=== PATIENT | female | born 1960 | race Caucasian/White ===

== ENCOUNTER 2021-01-22 14:51 | Emergency (ER) | payer OTHER ==
[~2021-01-22] VITALS: Ht 165.1 cm; Wt 98.0 kg
[2021-01-22] MEDS ORDERED: ACCU-CHEK COMFORT CURVE STRIP VI ONE (15:30)
[2021-01-22 16:40] LABS: Hematocrit 34.4 % (36.0-46.0); Hemoglobin 11.5 g/dL (12.2-16.2); Mean Corpuscular Hemoglobin 26.8 pg (28.0-32.0); Mean Corpuscular Hgb Conc. 33.4 g/dL (32.0-36.0); Mean Corpuscular Volume 80.5 fL (80.0-100.0); Platelet Count (auto) 280 10^3/uL (140-450); Red Blood Cells 4.28 10^6/uL (4.0-5.20); White Blood Cell 8.9 10^3/uL (4.4-10.8)
[2021-01-22 16:44] LABS: Red Cell Distribution Width 23.6 % (11.8-14.3)
[2021-01-22 16:45] LABS: Basophils % (manual) 0 (0.0-2.0); Blast Cells 0; Eosinophils % (manual) 0 (0-7); Metamyelocytes % 0; Myelocytes % 0; Promyelocytes % 0; Reactive Lymphocytes 0
[2021-01-22 16:55] LABS: Albumin 3.5 g/dL (3.4-5.0); Calcium 8.9 mg/dL (8.5-10.1)
[2021-01-22 16:59] LABS: BUN/Creatinine Ratio 24.7; Bilirubin, Total 0.4 mg/dL (0.2-1.0); Total Protein 7.7 g/dL (6.4-8.2)
[2021-01-22 17:05] LABS: Potassium 2.8 mmol/L (3.5-5.1)
[2021-01-22 17:29] LABS: Urine WBC None Seen /hpf (0 - 5)
[2021-01-22] MEDS: POTASSIUM CHL 20MEQ/100ML 100 ML IV SCH ×2 (17:39→19:48)
[2021-01-22 18:09] LABS: Urine Bacteria NONE SEEN /hpf (None Seen); Urine Blood TRACE /uL (Negative); Urine Specific Gravity 1.014 (1.001-1.035)
[2021-01-22 18:15] LABS: Band Neutrophils % (manual) 8; Lymphocytes % (manual) 6 (10.0-50.0); Monocytes % (manual) 12 (0-12)
[2021-01-22] MEDS ORDERED: SODIUM CHLORIDE 0.9% 1,000 ML IVB ONE (18:15)
[2021-01-22] MEDS ORDERED: ONDANSETRON HCL 4 MG/2 ML VIAL ONE (19:00)
[2021-01-22] MEDS ORDERED: ONDANSETRON HCL 4 MG/2 ML VIAL IV ONE (19:15)
[2021-01-22 19:41] LABS: INR 0.98 (0.9-1.15); Partial Thromboplastin Time 22.2 sec (23.0-31.2)
[2021-01-22 19:54] LABS: Magnesium 1.9 mg/dL (1.6-2.6)
[2021-01-23 02:57] VITALS: BP 135/70
== END 2021-01-23 03:29 | disposition short-term general hospital (02) ==
LOC: EDBD 14:51 → ER 14:51
DX: R55 Syncope and collapse (principal); E87.6 Hypokalemia; D00.08 Carcinoma in situ of pharynx; N19 Unspecified kidney failure; I10 Essential (primary) hypertension; K21.9 Gastro-esophageal reflux disease without esophagitis; E78.5 Hyperlipidemia, unspecified; Z20.822 Contact with and (suspected) exposure to COVID-19
CPT/HCPCS: 36415; 70450; 71045; 80053; 81001; 83735; 84484; 85007; 85027; 85610; 85730; 87426; 93005; 96361; 96365; 96366; 96375; 99285; J2405; J3480

== ENCOUNTER 2021-02-02 07:47 | Emergency (ER) | payer OTHER ==
[~2021-02-02] VITALS: Ht 162.6 cm; Wt 125.6 kg
[2021-02-02] MEDS ORDERED: GASTROGRAFIN 30 ML SOL ONE ×2 (08:40→08:41)
[2021-02-02 09:53] VITALS: BP 118/57
== END 2021-02-02 09:53 | disposition home or self-care (01) ==
LOC: ER 07:47
DX: Z43.1 Encounter for attention to gastrostomy (principal); I10 Essential (primary) hypertension; K21.9 Gastro-esophageal reflux disease without esophagitis; E78.5 Hyperlipidemia, unspecified; Z88.5 Allergy status to narcotic agent
CPT/HCPCS: 43762; 74018; 99284; Q9963

== ENCOUNTER 2021-03-10 19:01 | Inpatient (IN) | payer OTHER ==
[~2021-03-10] VITALS: Ht 162.6 cm; Wt 131.7 kg
[2021-03-10] MEDS ORDERED: PANTOPRAZOLE 40 MG/10 ML VIAL INJ IV ONE (19:15)
[2021-03-10 20:18] LABS: Hematocrit 34.9 % (36.0-46.0); Hemoglobin 11.7 g/dL (12.2-16.2); Mean Corpuscular Hemoglobin 29.5 pg (28.0-32.0); Mean Corpuscular Hgb Conc. 33.4 g/dL (32.0-36.0); Mean Corpuscular Volume 88.5 fL (80.0-100.0); Red Blood Cells 3.95 10^6/uL (4.0-5.20); White Blood Cell 9.3 10^3/uL (4.4-10.8)
[2021-03-10 20:23] LABS: Red Cell Distribution Width 22.7 % (11.8-14.3)
[2021-03-10 20:25] LABS: Basophils % (manual) 0 (0.0-2.0); Blast Cells 0; Eosinophils % (manual) 0 (0-7); Metamyelocytes % 0; Myelocytes % 0; Promyelocytes % 0; Reactive Lymphocytes 0
[2021-03-10 20:33] LABS: Albumin 3.3 g/dL (3.4-5.0); Anion Gap 8 (5-15); Blood Urea Nitrogen 24 mg/dL (7-18); Calcium 8.4 mg/dL (8.5-10.1); Carbon Dioxide 19 mmol/L (21-32); Chloride 107 mmol/L (98-107); Glucose 147 mg/dL (74-106); Magnesium 2.1 mg/dL (1.6-2.6); Potassium 4.2 mmol/L (3.5-5.1); Sodium 134 mmol/L (136-145)
[2021-03-10 20:39] LABS: Alanine Aminotransferase 23 U/L (13-56); Alkaline Phosphatase 72 U/L (45-117); Aspartate Aminotransferase 12 U/L (15-37); BUN/Creatinine Ratio 21.6; Bilirubin, Total 0.7 mg/dL (0.2-1.0); GFR African American 64 mL/min; GFR Non-African American 53 mL/min; Total Protein 7.1 g/dL (6.4-8.2)
[2021-03-10] MEDS ORDERED: IOHEXOL 350 MG/ML 100ML IJ ONE (20:49)
[2021-03-10 21:23] LABS: Band Neutrophils % (manual) 12; Lymphocytes % (manual) 3 (10.0-50.0); Monocytes % (manual) 4 (0-12)
[2021-03-10] MEDS ORDERED: ENOXAPARIN SOD 100 MG/1 ML SYRINGE SC ONE (22:30)
[2021-03-10] MEDS ORDERED: ONDANSETRON HCL 4 MG/2 ML VIAL IV ONE (23:30)
[2021-03-10] MEDS ORDERED: MORPHINE SULFATE 4 MG/ML SYR/VIAL IV ONE (23:30)
[2021-03-11] VITALS (44 sets, daily range): BP systolic 93–175; BP diastolic 44–105
[2021-03-11] MEDS ORDERED: DOCUSATE SOD 100 MG CAP PO PRN (02:30)
[2021-03-11] MEDS ORDERED: MORPHINE SULFATE INJECTION 2 MG/ML SYRG IV PRN (02:30)
[2021-03-11] MEDS ORDERED: NITROGLYCERIN 0.4 MG SL TAB SL PRN (02:30)
[2021-03-11] MEDS ORDERED: ACETAMINOPHEN 325 MG TAB PO PRN ×2 (02:30→18:15)
[2021-03-11 03:07] LABS: Basophils # (auto) 0 10 ^3/uL (0-0.2); Basophils % (auto) 0.3 % (0.0-2.0); Eosinophils # (auto) 0.1 10 ^3/uL (0-0.8); Eosinophils % (auto) 0.8 % (0.0-7.0); Hematocrit 33.6 % (36.0-46.0); Hemoglobin 11.4 g/dL (12.2-16.2); Lymphocytes # (auto) 0.9 10 ^3/uL (0.4-5.4); Lymphocytes % (auto) 8.6 % (10.0-50.0); Mean Corpuscular Hemoglobin 30.1 pg (28.0-32.0); Mean Corpuscular Hgb Conc. 33.8 g/dL (32.0-36.0); Mean Corpuscular Volume 88.9 fL (80.0-100.0); Monocytes # (auto) 0.5 10 ^3/uL (0-1.3); Monocytes % (auto) 4.2 % (0.0-12.0); Neutrophils # (auto) 9.2 10 ^3/uL (1.6-8.6); Neutrophils % (auto) 86.1 % (37.0-80.0); Red Blood Cells 3.78 10^6/uL (4.0-5.20); White Blood Cell 10.7 10^3/uL (4.4-10.8)
[2021-03-11 03:14] LABS: Red Cell Distribution Width 22.8 % (11.8-14.3)
[2021-03-11 03:23] LABS: Albumin 2.9 g/dL (3.4-5.0); BUN/Creatinine Ratio 20.7; Calcium 8.3 mg/dL (8.5-10.1); Potassium 4.8 mmol/L (3.5-5.1)
[2021-03-11 03:25] LABS: Total Protein 7.1 g/dL (6.4-8.2)
[2021-03-11] MEDS: ONDANSETRON HCL 4 MG/2 ML VIAL IV PRN ×2 (03:59→10:15)
[2021-03-11] MEDS: SODIUM CHLOR 0.9% PF (SALINE LOCK) 10ML VIAL/SYR IV SCH ×3 (06:38→21:36)
[2021-03-11] MEDS: HYDROcodone-ACET 10/325MG TAB PO PRN ×2 (08:15→20:00)
[2021-03-11] MEDS: ASCORBIC ACID 500 MG TAB PO SCH ×2 (09:27→21:37)
[2021-03-11] MEDS: ENOXAPARIN SOD 150 MG/1 ML SYRINGE SC SCH ×2 (09:27→21:37)
[2021-03-11] MEDS ORDERED: FAMOTIDINE (10MG/ML) 2ML VL IV SCH (10:00)
[2021-03-11] MEDS ORDERED: MULTIPLE VITAMIN TAB PO SCH (10:00)
[2021-03-11] MEDS ORDERED: ZINC SULFATE 220mg CAP or TAB PO SCH (10:00)
[2021-03-11] MEDS: MORPHINE SULFATE 4 MG/ML SYR/VIAL IV PRN ×2 (10:15→17:00)
[2021-03-11] MEDS ORDERED: OLAN1TAB7 PO (10:57)
[2021-03-11] MEDS ORDERED: CLON0.5T10 PO (10:57)
[2021-03-11] MEDS ORDERED: BUSP15TA90 PO (10:57)
[2021-03-11] MEDS ORDERED: HYDR1TAB97 PO (10:57)
[2021-03-11] MEDS ORDERED: SCOP1DIS9 TOP (10:57)
[2021-03-11] MEDS ORDERED: METO5SOL PO (10:57)
[2021-03-11] MEDS ORDERED: MET25T PO (10:57)
[2021-03-11] MEDS ORDERED: VANCOMYCIN PER PHARMACY 0 MG IV SCH (13:45)
[2021-03-11 13:56] LABS: Urine Bacteria NONE SEEN /hpf (None Seen); Urine Blood TRACE /uL (Negative); Urine Hyaline Cast MANY /lpf (0 - 2); Urine WBC 13 /hpf (0 - 5)
[2021-03-11 13:57] LABS: Urine Specific Gravity > 1.050 (1.001-1.035)
[2021-03-11] MEDS: SODIUM CHLORIDE 0.9% 1,000 ML IV SCH ×2 (14:06→21:35)
[2021-03-11] MEDS ORDERED: VANCOMYCIN 1GM/250ML 250 ML IV SCH (15:00)
[2021-03-11] MEDS ORDERED: VANCOMYCIN 1GM/250ML 250 ML IV ONE (15:07)
[2021-03-11] MEDS ORDERED: MEROPENEM 1GM IVPB 100 ML IV ONE (16:45)
[2021-03-11] MEDS ORDERED: METOPROLOL TARTRATE 1MG/1ML-5ML VIAL IV PRN (18:15)
[2021-03-11] MEDS ORDERED: ACETAMINOPHEN IV 1000 MG/100ML (10MG/ML) IV ONE (18:15)
[2021-03-11] MEDS ORDERED: ACETAMINOPHEN 650 MG RECT SUPP PR PRN (18:15)
[2021-03-11] MEDS ORDERED: METOPROLOL TARTRATE 1MG/1ML-5ML VIAL IV ONE (18:23)
[2021-03-11] MEDS ORDERED: LORazepam 2MG/ML-1ML VIAL ONE (18:24)
[2021-03-11] MEDS ORDERED: MEPERIDINE HCL (25 MG/ML) 1ML VIAL IM PRN (18:30)
[2021-03-11] MEDS ORDERED: MEPERIDINE HCL (25 MG/ML) 1ML VIAL ONE (18:39)
[2021-03-11] MEDS: LORazepam 2MG/ML-1ML VIAL IV PRN (18:46)
[2021-03-11] MEDS ORDERED: MEROPENEM 1GM IVPB 100 ML IV SCH (22:00)
[2021-03-12] VITALS (15 sets, daily range): BP systolic 102–139; BP diastolic 51–95
[2021-03-12] MEDS: LORazepam 2MG/ML-1ML VIAL IV PRN (00:59)
[2021-03-12] MEDS: MORPHINE SULFATE 4 MG/ML SYR/VIAL IV PRN (01:32)
== END 2021-03-12 04:00 | disposition short-term general hospital (02) | DRG 175 ==
LOC: ER 19:01 → EDBD 19:01 → OVERFLOW 03-11 02:30 → DOU IN ICU 03-11 05:23
PROVIDERS: ADMIT Nurse Practitioner Family; ATTEND Internal Medicine
DX: I26.99 Other pulmonary embolism without acute cor pulmonale (principal); J96.01 Acute respiratory failure with hypoxia; K66.1 Hemoperitoneum; Z68.43 Body mass index [BMI] 50.0-59.9, adult; K94.23 Gastrostomy malfunction; Z20.822 Contact with and (suspected) exposure to COVID-19; E66.01 Morbid (severe) obesity due to excess calories; E78.5 Hyperlipidemia, unspecified; I10 Essential (primary) hypertension; Z80.9 Family history of malignant neoplasm, unspecified; Z83.3 Family history of diabetes mellitus; Z85.850 Personal history of malignant neoplasm of thyroid; Z90.49 Acquired absence of other specified parts of digestive tract; Z98.84 Bariatric surgery status; Y83.8 Other surgical procedures as the cause of abnormal reaction of the patient, or of later complication, without mention of misadventure at the time of the procedure
CPT/HCPCS: 36415; 71045; 71275; 74176; 80053; 81001; 83036; 83735; 83880; 84439; 84443; 84484; 85007; 85025; 85027; 85379; 87040; 87081; 87086; 87426; 93005; 93970; 96372; 96374; 96375; 96376; C9113; G0378; J0131; J2185; J2405; J3490